=== PATIENT | female | born 1995 | race Caucasian/White ===

== ENCOUNTER 2018-09-10 07:12 | Day surgery (SDC) | payer BC ==
[~2018-09-10] VITALS: Ht 167.6 cm; Wt 80.7 kg
--- NOTE | ~2018-09-10 | HP ---
PATIENT: JUDIT ARMANDO MEDICAL RECORD: [id number] ACCOUNT: [id number] LOCATION:[facility] : 97 ADMISSION DATE: 09/10/18 PCP: HISTORY AND PHYSICAL EXAMINATION PREOPERATIVE HISTORY AND PHYSICAL HISTORY OF PRESENT ILLNESS: Judit is 23 years old. She has had problems with recurrent strep for years. She is being admitted for tonsillectomy and adenoidectomy. PAST MEDICAL HISTORY: Includes wisdom teeth 2015. CURRENT MEDICATIONS: Elavil ALLERGIES: No known drug allergies. PHYSICAL EXAMINATION: GENERAL: Healthy-appearing, developmentally normal. FACE: Normal, symmetric, no lesions. EYES: Sclerae and conjunctivae are normal. EARS: Canals and TMs normal. NOSE: No mass, polyps, or drainage. ORAL CAVITY AND OROPHARYNX: A 4+ tonsils, normal palate. NECK: No masses, no adenopathy. CHEST: Clear. CARDIOVASCULAR: Regular rate and rhythm, no murmur. EXTREMITIES: Normal. IMPRESSION: Chronic pharyngitis and adenotonsillar hypertrophy. PLAN: Tonsillectomy and adenoidectomy. TRANSINT:[id number] Voice Confirmation ID: [id number] DOCUMENT ID: [id number] FITO HARRIS MD CC: [id number] DICTATION DATE: 09/08/18 1454 SERVICE CAR DRIVER: 09/08/18 1729 [id number] [place] [address]
--- NOTE | ~2018-09-10 | OP ---
PATIENT NAME: [place]I [place]ANDO [facility] [place]: [id number] :97 LOCATION:[facility] ADMISSION DATE: SURGEON: FITO LOUIE MD DATE OF OPERATION: 09/10/2018 PREOPERATIVE DIAGNOSES: Chronic pharyngitis, tonsillar hypertrophy. POSTOPERATIVE DIAGNOSES: Chronic pharyngitis, tonsillar hypertrophy. PROCEDURE: Tonsillectomy. SURGEON: Fito Louie MD ANESTHESIA: General orotracheal. BLOOD LOSS: 2 cc. SPECIMENS: Right and left tonsil. COMPLICATIONS: None. DISPOSITION: Recovery stable. FINDINGS: 4+ tonsils, no significant adenoid tissue. PROCEDURE NOTE: She was brought to the operating room and placed in supine position, sedated and intubated by anesthesia. Table was turned 90 degrees. Head drapes were applied and she was positioned for tonsillectomy. Using a headlight, a Amari-Kd mouth gag was carefully inserted and elevated on a towel on her chest. The palate was then palpated. It was normal. A red rubber catheter was placed to the right side of the nose and pharynx was grasped with tonsil clamp to retract the soft palate. Using a mirror, the nasopharynx was examined. The choanae and eustachian orifices were normal bilaterally. There was no significant adenoid tissue. The red rubber catheter was let down and removed. The right tonsil was grasped at the superior pole with a straight Allis clamp. Spatula tip cautery on a setting of 9 was used to dissect out the tonsil along its capsule, preserving the anterior and posterior tonsillar pillar. The left tonsil was removed in the same fashion. Then, both sides of the nose were irrigated with saline. The pharynx was suctioned. Tonsillar fossae were agitated. Suction cautery on a setting of 20 was used to control minimal oozing. With the field clean and dry, Amari-Kd mouth gag was let down and removed. She was awakened, extubated, and transported to recovery in good condition. No complications. TRANSINT:[id number] Voice Confirmation ID: [id number] DOCUMENT ID: [id number] FITO LOUIE MD CC: [id number] DICTATION DATE: 09/10/18 1135 PUMP PRESS OPERATOR: 09/10/18 1214 [facility] [address] [place] [address]
[2018-09-10 07:56] LABS: HEMATOCRIT 40.9 % (36.0-48.0); HEMOGLOBIN 13.8 g/dL (12-16); MCH 26.5 pg (26.0-34.0); MCHC 33.7 g/dL (31.0-37.0); MCV 78.5 fL (80.0-100.0); MEAN PLATELET VOLUME 9.6 fL (7.4-10.4); RBC 5.21 10x6/uL (4.00-5.40); RDW 13.4 % (11.5-14.5); WBC 7.2 10x3/uL (4.8-10.8)
[2018-09-10] MEDS ORDERED: AMITRIPTYLIN (08:28)
[2018-09-10] MEDS ORDERED: AMETHIA 0.15-01 EACH PO (08:28)
[2018-09-10 08:36] VITALS: BP 101/74; Ht 167.6 cm; Wt 80.7 kg
[2018-09-10 09:42] LABS: HCG SERUM NEGATIVE (NEGATIVE)
== END 2018-09-10 12:32 | disposition home or self-care (01) ==
LOC: D.OPS 07:12
PROVIDERS: Anesthesiology
DX: J35.01 Chronic tonsillitis (principal)